=== PATIENT | female | born 1965 | race African-American/Black ===

== ENCOUNTER 2018-02-20 11:33 | Emergency (ER) | payer OTHER ==
[~2018-02-20] VITALS: Ht 167.6 cm; Wt 72.6 kg
[2018-02-20 11:39] VITALS: BP_SYST 137
--- NOTE | 2018-02-20 11:52 | NUR ---
Patient to ER bed 6 to gown for evaluation. Side rails up. Report given to Flavio BENNETT.
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
--- NOTE | 2018-02-20 12:00 | NUR ---
Dr. Shen at bedside.
[2018-02-20] MEDS ORDERED: IBUPROFEN 800 MG TABLET PO ONE (13:00)
[2018-02-20 13:15] VITALS: BP_SYST 142
--- NOTE | 2018-02-20 13:15 | NUR ---
Patient given written and verbal discharge instructions and verbalizes understanding. ER MD discussed with patient the results and treatment provided. Patient in stable condition. ID arm band removed. Rx of [place] and Motrin given. Patient educated on pain management and to follow up with PMD. Pain Scale 2/10. Opportunity for questions provided and answered. Medication side effect fact sheet provided. Pt instructed to not drive or drink alcohol after taking [place].
== END 2018-02-20 13:15 | disposition home or self-care (01) ==
LOC: SED 11:33
DX: M54.5 Low back pain (principal); M54.2 Cervicalgia; R03.0 Elevated blood-pressure reading, without diagnosis of hypertension; Z90.721 Acquired absence of ovaries, unilateral; V43.52XA Car driver injured in collision with other type car in traffic accident, initial encounter; Y93.89 Activity, other specified; Y92.411 Interstate highway as the place of occurrence of the external cause; Y99.8 Other external cause status
CPT/HCPCS: 99283